=== PATIENT | female | born 1965 | race Caucasian/White ===

== ENCOUNTER 2016-08-02 11:28 | Day surgery (SDC) | payer OTHER, BC ==
[2016-08-02] MEDS ORDERED: BUPIVACAINE 0.25% 30 ML SDV ONE (13:17)
[2016-08-02] MEDS ORDERED: TRIAMCINOLONE ACETONIDE 200 MG/5 ML MDV IM ONE (13:20)
[2016-08-02] MEDS ORDERED: LIDOCAINE 1% 30 ML SDV ONE (13:20)
--- NOTE | 2016-08-02 16:54 | IR ---
Lumbar Epidural Steroid Injection History: Low back pain radiating into pelvis and legs. Multiple previous spinal operations include fu david at L4-L5. The patient enjoyed excellent relief of symptoms after right L4 selective nerve root b lock by Dr. Dumas 6 to 8 weeks ago. However, symptoms have recurred. Dr. Dumas requests us to perform right L4 selective nerve root block today. Consent: Risks and benefits of the procedure were discussed in detail. Informed consent was obtained. The patient accepted risks of lack of therapeutic benefit, irritation of right L4 nerve, internal bl eeding, and infection. Medication: Local anesthetic, only, at the preference of the patient. Technique: With the patient prone, the low back was prepped and draped in sterile fashion. 1% Xylocai ne was used for local anesthetic. Using multiplanar fluoroscopic guidance, a 22-gauge spinal needle w as maneuvered to the upper margin of the right L4-L5 intervertebral foramen. Injection of Isovue-M 30 0 was imaged with spot radiographs. 1 mL of Kenalog (40 mg), 1 mL of 0.25% bupivacaine, and 1 mL of p reservative-free 1% Xylocaine were mixed and slowly injected. The patient tolerated the procedure wel l. She was observed briefly in our department and then allowed to leave. During placement of the needle, the patient experienced no symptoms of radiculopathy. Findings: Contrast surrounds the right L4 root sleeve within the neural foramen and also in the right lateral recess of the spinal canal. Bilateral pedicle screws and posterior fusion bars are found at L4-L5. Opaque markers of intervertebral graft are found at the interspace at L4-L5, and fusion appear s mature. Bony fusion is also present at the L5-S1 interspace. Leads of spinal stimulator are partial ly imaged, further cephalad. Impression: 1. Right L4 selective nerve root block, using long-acting steroid, rapid-acting anesthetic, and long- acting anesthetic. 2. Fusions at L4-L5 and L5-S1. - - - - - - - - - - - - - - - - - - - - - - - - - - - - - - - - - - - - - - - - - - - - (PQRS Measures: Current medications were listed in the medical record, including all known prescript ions, [id number] medications, herbal medications, and nutritional supplements. Tobacco Use: Non e. Prophylactic antibiotic: Unnecessary. VTE prophylaxis: Unnecessary.)
== END 2016-08-02 14:05 | disposition home or self-care (01) ==
LOC: FIMAGING 11:28
PROVIDERS: ATTEND Radiology Diagnostic Radiology
PROC: 3E0S33Z Introduction of Anti-inflammatory into Epidural Space, Percutaneous Approach (ICD-10-PCS; principal; 2016-08-02)
PROC: 3E0S3BZ Introduction of Anesthetic Agent into Epidural Space, Percutaneous Approach (ICD-10-PCS; principal; 2016-08-02)
DX: M54.5 Low back pain (principal)
CPT/HCPCS: J3301

== ENCOUNTER → 2017-03-12 | Outpatient (CLI) | payer BC, OTHER ==
[~2017-03-12] MED LIST: IOPAMIDOL (ISOVUE-M 200) 20 ML VIAL ONE; LIDOCAINE 1% 300 MG/30 ML SDV ONE
== END ==
LOC: FIMAGING 09:07
PROVIDERS: ATTEND Physician Assistant
PROC: 3E0R3KZ Introduction of Other Diagnostic Substance into Spinal Canal, Percutaneous Approach (ICD-10-PCS; principal; 2017-03-12)
DX: M51.26 Other intervertebral disc displacement, lumbar region (principal); Z98.1 Arthrodesis status
CPT/HCPCS: 62304; 72132; 72265; Q9966

== ENCOUNTER 2017-03-13 23:12 | Emergency (ER) | payer OTHER ==
[2017-03-13 23:18] VITALS: RESP 16
--- NOTE | 2017-03-14 00:26 | EDPHY ---
H & P Stated Complaint: Pain from lower back to left leg x2 hours Time Seen by Provider: 03/14/17 00:01 HPI/ROS: Chief Complaint: Back pain HPI: 51-year-old woman past medical history of chronic back pain, status post microdiskectomy, spinal fusions and a spinal stimulator placement. Patient had a CT myelogram done yesterday has been having worsening pain since then. Patient states she is having shooting pain down her left leg which lasts about 2 seconds. Is a 9/10 in intensity. She also has some baseline pain as 410. She normally takes Lyrica OxyContin and hydrocodone. She states she has taken his but still having the pain. No new numbness or weakness. No urinary symptoms. She is ambulating without any difficulty. No fevers or chills. ROS: 10 point Review of Systems is negative except as noted in the HPI. PMH: Chronic back pain Medications: OxyContin XR, hydrocodone, Lyrica Allergies: Gabapentin Social History: No smoking, no alcohol, no recreational drug use Family History: non-contributory Physical Exam: Gen: Awake, Alert, No Distress HEENT: Nose: no rhinorrhea Eyes: PERRLA, EOMI Mouth: Moist mucosa Neck: Supple, no JVD Chest: nontender, lungs clear to auscultation Heart: S1, S2 normal, no murmur Abd: Soft, non-tender, no guarding Back: no CVA tenderness, no midline tenderness Ext: no edema, non-tender Skin: no rash Neuro: CN II-XII intact, Sensation grossly intact, Strength 5/5 in bilateral upper and lower extremities, she has 2+ left patellar reflex, 1+ right patellar to reflex. Toes are downgoing. Sensations intact bilaterally. - Personal History LMP (Females 10-55): Extended Cycle BCP/Inj Current Tetanus/Diphtheria Vaccine: Yes Current Tetanus Diphtheria and Acellular Pertussis (TDAP): Yes Tetanus Vaccine Date: 2012 - Medical/Surgical History Hx Asthma: No Hx Chronic Respiratory Disease: No Hx Diabetes: No Hx Cardiac Disease: No Hx Renal Disease: No Hx Cirrhosis: No Hx Alcoholism: No Hx HIV/AIDS: No Hx Splenectomy or Spleen Trauma: No Other PMH: hypothyroidism, chronic pain, depression, endometriosis - Social History Smoking Status: Never smoked Constitutional: Initial Vital Signs Temperature (C) 36.6 C 03/13/17 23:15 Heart Rate 95 03/13/17 23:15 Respiratory Rate 16 03/13/17 23:15 Blood Pressure 115/71 03/13/17 23:15 O2 Sat (%) 97 03/13/17 23:15 O2 Delivery Mode Room Air Allergies/Adverse Reactions: gabapentin Allergy (Intermediate, Verified 03/08/17 11:01) Edema of Extremities Home Medications: Medication Instructions Recorded Escitalopram Oxalate [Lexapro] 20 mg PO 04/07/16 HYDROcodone BITARTRATE [Zohydro ER] 10 mg PO 04/07/16 Levothyroxine [Synthroid 88 mcg 88 mcg PO DAILY06 04/07/16 (*)] Pregabalin [Lyrica] 150 mg PO TID 04/07/16 oxyCODONE HCL [Oxycontin] 60 mg PO 04/07/16 traZODone [traZODone 150MG (*)] 150 mg PO 04/07/16 Famciclovir 500 mg PO DAILY 07/25/16 Microgestin 129 mg PO DAILY 07/25/16 Mirtazapine 15 mg PO DAILY 07/25/16 Medical Decision Making ED Course/Re-evaluation: Patient is improved after IV Toradol. Plan will be to discharge with follow-up with a neurosurgeon. There is no new red flags or findings suggestive of acute neurosurgical emergency. - Data Points Laboratory Results: 03/14/17 01:50 Urine Color COLORLESS Urine Appearance CLEAR Urine pH 7.0 (5.0-7.5) Ur Specific [place] 1.003 (1.002-1.030) Urine Protein NEGATIVE (NEGATIVE) Urine Ketones NEGATIVE (NEGATIVE) Urine Blood NEGATIVE (NEGATIVE) Urine Nitrate NEGATIVE (NEGATIVE) Urine Bilirubin NEGATIVE (NEGATIVE) Urine Urobilinogen NEGATIVE EU EU (0.2-1.0) Ur Leukocyte Esterase NEGATIVE (NEGATIVE) Urine Glucose NEGATIVE (NEGATIVE) Medications Given: Discontinued Medications Ketorolac Tromethamine (Toradol) 15 mg IVP EDNOW ONE Stop: 03/14/17 00:28 Last Admin: 03/14/17 00:45 Dose: 15 mg Departure - Departure Disposition: Home, Routine, Self-Care Clinical Impression: Back pain Condition: Good Instructions: Back Pain (ED) Additional Instructions: Follow up with your back surgeon in 2-3 days for re-evaluation. Return emergency depart for increasing pain, worsening numbness, weakness, difficulty walking, difficulty urinating, or any other concerns. Referrals: Karen Dumas [Primary Care Provider] - As per Instructions
[2017-03-14] MEDS ORDERED: KETOROLAC 15 MG/1 ML SDV IVP ONE (00:27)
[2017-03-14 02:02] LABS: COLOR COLORLESS; LEUKOCYTE ESTERASE,URINE NEGATIVE (NEGATIVE); NITRITE,URINE NEGATIVE (NEGATIVE)
[2017-03-14 02:59] VITALS: BP 100/66; PULSE 55; TEMP 98.1; O2SAT 94
== END 2017-03-14 02:51 | disposition home or self-care (01) ==
DX: M54.9 Dorsalgia, unspecified (principal)
CPT/HCPCS: 96374; 99284; J1885; 81291-90; 82607-90; 82784-90; 83516-90; 84481-90; 86812-90

== ENCOUNTER → 2017-12-19 | Outpatient (CLI) | payer OTHER ==
[~2017-12-19] MED LIST changes: +IOPAMIDOL (ISOVUE 370) 100 ML BTL IV ONE; -IOPAMIDOL (ISOVUE-M 200) 20 ML VIAL ONE
== END ==
LOC: FIMAGING 13:54
PROVIDERS: ATTEND Orthopaedic Surgery
PROC: 3E0U3KZ Introduction of Other Diagnostic Substance into Joints, Percutaneous Approach (ICD-10-PCS; principal; 2017-12-19)
DX: M23.222 Derangement of posterior horn of medial meniscus due to old tear or injury, left knee (principal); M94.8X6 Other specified disorders of cartilage, lower leg; M17.12 Unilateral primary osteoarthritis, left knee; M71.22 Synovial cyst of popliteal space [Baker], left knee
CPT/HCPCS: 27370; 73580; 73701; Q9967

== ENCOUNTER → 2018-02-04 | Outpatient (CLI) | payer OTHER | LOC: FIMAGING 15:06 | PROVIDERS: ATTEND Obstetrics & Gynecology | DX: Z12.31 Encounter for screening mammogram for malignant neoplasm of breast (principal); Z80.3 Family history of malignant neoplasm of breast ==